=== PATIENT | male | born 1995 | race Caucasian/White ===

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

== ENCOUNTER 2017-10-10 20:14 | Emergency (ER) | payer OTHER ==
[~2017-10-10] VITALS: Ht 193 cm; Wt 63.5 kg
[2017-10-10 20:17] VITALS: BP 131/83; Ht 193 cm; Wt 63.5 kg
== END 2017-10-11 | disposition home or self-care (01) ==
LOC: ED 20:14
DX: K13.79 Other lesions of oral mucosa (principal)

== ENCOUNTER 2018-07-06 00:02 | Emergency (ER) | payer OTHER | END 2018-07-06 01:13 | disposition other institution (70) | LOC: ED 00:02 | DX: Z02.89 Encounter for other administrative examinations (principal) ==

== ENCOUNTER 2018-07-06 00:02 | Emergency (ER) | payer OTHER ==
[~2018-07-06] VITALS: Ht 190.5 cm; Wt 68.0 kg
[2018-07-06 00:12] VITALS: Ht 190.5 cm; Wt 68.0 kg
[2018-07-06 01:13] VITALS: BP 125/98
== END 2018-07-06 01:13 | disposition other institution (70) ==
LOC: ED 00:02
DX: F19.10 Other psychoactive substance abuse, uncomplicated (principal); Z13.89 Encounter for screening for other disorder

== ENCOUNTER 2018-08-11 02:15 | Emergency (ER) | payer OTHER ==
[~2018-08-11] VITALS: Ht 190.5 cm; Wt 68.0 kg
[2018-08-11 02:20] VITALS: Ht 190.5 cm; Wt 68.0 kg
[2018-08-11 04:31] LABS: BASOPHIL % 0.4 % (0-2); PLATELET COUNT 191 x10^3mcL (130-400); RED CELL DISTRIBUTION WIDTH 12.5 % (11.5-14.5)
[2018-08-11 05:24] LABS: CALCIUM 9.7 mg/dL (8.5-10.1); CARBON DIOXIDE 26.5 mmol/L (21-32); CHLORIDE SERUM 101 mmol/L (98-107); CREATININE SERUM 1.3 mg/dL (0.7-1.3); GFR1 > 60 mL/min; GLUCOSE SERUM 118 mg/dL (74-106); POTASSIUM SERUM 3.5 mmol/L (3.5-5.1); SODIUM SERUM 140 mmol/L (136-145)
[2018-08-11 05:29] LABS: ALKALINE PHOSPHATASE 107 U/L (46-116); ALT/SGPT 19 U/L (16-63); AST/SGOT 27 U/L (15-37); BILIRUBIN TOTAL 0.62 mg/dL (0.20-1.00); TOTAL PROTEIN, SERUM 7.1 g/dL (6.4-8.2)
[2018-08-11 09:10] LABS: AMPHETAMINE QUAL UR NONE DETECTED (See below)
[2018-08-11 13:15] VITALS: BP 123/50
== END 2018-08-11 13:15 | disposition home or self-care (01) ==
LOC: ED 02:15
PROVIDERS: Emergency Medicine
DX: R45.1 Restlessness and agitation (principal); F84.0 Autistic disorder; R41.0 Disorientation, unspecified
CPT/HCPCS: 36415; G0480; J1630; J2060

== ENCOUNTER 2019-08-29 23:36 | Emergency (ER) | payer OTHER ==
[~2019-08-29] VITALS: Ht 193 cm; Wt 67.1 kg
[2019-08-29 23:41] VITALS: Ht 193 cm; Wt 67.1 kg
[2019-08-30 00:22] LABS: BASOPHIL % 0.1 % (0-2); PLATELET COUNT 230 x10^3mcL (130-400); RED CELL DISTRIBUTION WIDTH 13.4 % (11.5-14.5)
[2019-08-30 00:27] LABS: CALCIUM 8.6 mg/dL (8.5-10.1); CARBON DIOXIDE 27.7 mmol/L (21-32); CHLORIDE SERUM 103 mmol/L (98-107); CREATININE SERUM 1.3 mg/dL (0.7-1.3); GFR1 > 60 mL/min; GLUCOSE SERUM 85 mg/dL (74-106); POTASSIUM SERUM 3.8 mmol/L (3.5-5.1); SODIUM SERUM 140 mmol/L (136-145)
[2019-08-30 00:31] LABS: ALBUMIN 4.2 g/dL (3.4-5.0); ALKALINE PHOSPHATASE 117 U/L (46-116); ALT/SGPT 14 U/L (16-63); AST/SGOT 17 U/L (15-37); BILIRUBIN TOTAL 0.7 mg/dL (0.20-1.00); TOTAL PROTEIN, SERUM 7.4 g/dL (6.4-8.2)
[2019-08-30 00:38] LABS: microscopic required? NO
[2019-08-30 00:51] LABS: UA SPECIFIC GRAVITY 1.015 (1.005-1.035); urine erythrocyte NEGATIVE (NEGATIVE)
[2019-08-30 01:05] LABS: AMPHETAMINE QUAL UR NONE DETECTED (See below)
[2019-08-30 13:23] VITALS: BP 109/54
== END 2019-08-30 13:23 | disposition home or self-care (01) ==
LOC: ED 23:36
PROVIDERS: Emergency Medicine
DX: S01.411A Laceration without foreign body of right cheek and temporomandibular area, initial encounter (principal); R45.851 Suicidal ideations; F32.9 Major depressive disorder, single episode, unspecified; F10.99 Alcohol use, unspecified with unspecified alcohol-induced disorder; Y04.8XXA Assault by other bodily force, initial encounter; Y93.89 Activity, other specified; Y92.89 Other specified places as the place of occurrence of the external cause; Y99.8 Other external cause status
CPT/HCPCS: 36415; G0480; J3486

== ENCOUNTER 2020-04-19 06:28 | Emergency (ER) | payer OTHER, SELFPAY ==
[~2020-04-19] VITALS: Ht 193 cm; Wt 68.0 kg
[2020-04-19 06:33] VITALS: Ht 193 cm; Wt 68.0 kg
[2020-04-19 07:03] VITALS: BP 119/76
== END 2020-04-19 07:03 | disposition left against medical advice (07) ==
LOC: ED 06:28
DX: G47.00 Insomnia, unspecified (principal); F15.10 Other stimulant abuse, uncomplicated
CPT/HCPCS: G0480; U0003